=== PATIENT | male | born 1950 | race Caucasian/White ===

== ENCOUNTER 2022-02-17 16:04 | Inpatient (IN) ==
[2022-02-17] MEDS ORDERED: SODIUM CHLORIDE 0.9% 1,000 ML IV STA (16:49)
[2022-02-17] MEDS ORDERED: KETOROLAC 30 MG/1 ML VIAL IV STA (16:51)
[2022-02-17] MEDS ORDERED: KETOROLAC 30 MG/1 ML VIAL ONE (16:53)
[2022-02-17 17:03] LABS: Basophils % 0.5 % (0.0-0.8); Eosinophils # 0.2 10*3/uL (0.0-0.87); Eosinophils % 3.6 % (0.00-10.9); Hematocrit 44.5 VOL% (42.0-52.0); Hemoglobin 15.8 GM/DL (14.0-18.0); Immature Granulocytes % 0.9 %; Immature Granulocytes Absolute 0.05 #; Lymphocytes # 0.3 10*3/uL (1.4-4.0); Lymphocytes % 5.2 % (21.2-54.2); Mean Corpuscular HGB Conc 35.5 GM/DL (32-36); Mean Corpuscular Volume 92.3 FL (87-102); Mean Platelet Volume 9.6 FL (9.6-12.0); Monocytes # 0.3 10*3/uL (0.11-0.8); Monocytes % 5.1 % (1.7-12.7); Neutrophils % 84.7 % (38.7-73.9); Platelet Count 142 T/CUMM (130-400); Red Blood Count 4.82 MC/CUMM (3.8-5.5); Red Cell Distribution Width 11.7 % (9.3-17.3); White Blood Count 5.5 T/CUMM (4-12)
[2022-02-17 17:26] LABS: Albumin 3.2 G/DL (3.4-5.0); Bilirubin,Total 1.7 MG/DL (0.20-1.00); Calcium 9.1 MG/DL (8.5-10.1); Osmolality,Calculated 249.6 MOS/KG (273-304); Potassium 3.2 MMOL/L (3.5-5.1)
[2022-02-17 17:32] LABS: Polychromasia Slight
[2022-02-17 17:33] LABS: Platelet Estimate Normal
[2022-02-17] MEDS ORDERED: ACETAMINOPHEN 325 MG TABLET PO PRN (18:29)
[2022-02-17] MEDS ORDERED: ONDANSETRON 4 MG/2 ML VIAL IV PRN (18:29)
[2022-02-17] MEDS ORDERED: LORazepam 2 MG/1 ML VIAL IV PRN (18:48)
[2022-02-17 18:49] LABS: Hepatitis B Core IgM Quant 0.15 Index; Hepatitis B Surface Ag Quant < 0.10 Index; Hepatitis B Surface Ag Result Non-Reactive (NonReactive); Hepatitis C Virus Ab Quant 0.02 Index; Hepatitis C Virus Ab Result Non-Reactive (NonReactive)
[2022-02-17] MEDS ORDERED: hydrALAZINE 20 MG/1 ML VIAL IV PRN (18:56)
[2022-02-17 20:02] LABS: Calcium 8.2 MG/DL (8.5-10.1); Osmolality,Calculated 259.1 MOS/KG (273-304); Potassium 3.3 MMOL/L (3.5-5.1)
[2022-02-17] MEDS: ENOXAPARIN 40 MG/0.4 ML SYRINGE SUBCUT SCH (21:02)
[2022-02-17] MEDS: POTASSIUM CHLORIDE INJ 20 MEQ in LACTATED RINGERS 1,000 ML IV SCH (21:04)
[2022-02-18 02:15] LABS: Mucus,Urine Moderate /LPF (Occasional); RBC,Urine 4 /HPF (0-4); Squamous Epithelial Cell,Urine Occasional /HPF (0-10)
[2022-02-18 02:17] LABS: Urine Color Dark Yellow (Yellow)
[2022-02-18 02:18] LABS: Bilirubin,Urine Small mg/dL (Negative); Blood, Urine Negative (Negative); Glucose,Urine (UA) Negative (Negative); Ketones,Urine TR mg/dL (Negative); Nitrite,Urine Negative (Negative); Protein,Urine Negative (Negative); Urine Appearance Clear (Clear)
[2022-02-18 06:21] LABS: Basophils % 0.7 % (0.0-0.8); Eosinophils # 0.1 10*3/uL (0.0-0.87); Eosinophils % 3.1 % (0.00-10.9); Hematocrit 42.7 VOL% (42.0-52.0); Hemoglobin 15.2 GM/DL (14.0-18.0); Immature Granulocytes % 0.7 %; Immature Granulocytes Absolute 0.03 #; Lymphocytes # 0.6 10*3/uL (1.4-4.0); Lymphocytes % 13.1 % (21.2-54.2); Mean Corpuscular HGB Conc 35.6 GM/DL (32-36); Mean Corpuscular Volume 92.8 FL (87-102); Mean Platelet Volume 10.2 FL (9.6-12.0); Monocytes # 0.4 10*3/uL (0.11-0.8); Neutrophils % 73.4 % (38.7-73.9); Platelet Count 132 T/CUMM (130-400); Red Cell Distribution Width 11.8 % (9.3-17.3); White Blood Count 4.6 T/CUMM (4-12)
[2022-02-18 06:35] LABS: Calcium 8.6 MG/DL (8.5-10.1); Osmolality,Calculated 253.4 MOS/KG (273-304); Potassium 3.3 MMOL/L (3.5-5.1)
[2022-02-18 06:45] LABS: Band Neutrophils 8 % (0-10); Eosinophils 6 % (0-10); Lymphocytes 10 % (20-55); Total Cells Counted 100
[2022-02-18 06:46] LABS: Microcytosis Slight; Platelet Estimate Adequate
[2022-02-18] MEDS ORDERED: POTASSIUM CHLORIDE 20 MEQ TABLET PO ONE (07:21)
[2022-02-18 07:25] LABS: Albumin 2.9 G/DL (3.4-5.0); Bilirubin,Direct 0.82 MG/DL (0.0-0.20); Bilirubin,Indirect 0.6 MG/DL (0.0-1.0); Bilirubin,Total 1.4 MG/DL (0.20-1.00); Total Protein 6.5 G/DL (6.4-8.2)
[2022-02-18] MEDS ORDERED: FOLIC ACID INJ 1 MG in SYRINGE 1 EACH IV SCH (09:00)
[2022-02-18] MEDS: lisinopriL 20 MG TABLET PO SCH (10:55)
[2022-02-18 10:56] LABS: Calcium 8.3 MG/DL (8.5-10.1); Osmolality,Calculated 252.6 MOS/KG (273-304); Potassium 3.5 MMOL/L (3.5-5.1)
[2022-02-18] MEDS: PANTOPRAZOLE 40 MG TABLET PO SCH (10:56)
[2022-02-18] MEDS: allopurinoL 100 MG TABLET PO SCH (10:56)
[2022-02-18] MEDS: amLODIPine 10 MG TABLET PO SCH (10:56)
[2022-02-18] MEDS: THIAMINE 200 MG/2 ML VIAL IV SCH (10:56)
[2022-02-18] MEDS: FOLIC ACID 1 MG TABLET PO SCH (11:00)
[2022-02-18] MEDS: POTASSIUM CHLORIDE INJ 20 MEQ in LACTATED RINGERS 1,000 ML IV SCH (11:41)
[2022-02-18] MEDS: SODIUM CHLORIDE 0.9% 1,000 ML IV SCH ×2 (12:00→21:51)
[2022-02-18 18:13] LABS: Calcium 8.3 MG/DL (8.5-10.1); Osmolality,Calculated 253.5 MOS/KG (273-304); Potassium 3.4 MMOL/L (3.5-5.1)
[2022-02-18] MEDS: ENOXAPARIN 40 MG/0.4 ML SYRINGE SUBCUT SCH (21:53)
[2022-02-18 23:52] LABS: Calcium 8.6 MG/DL (8.5-10.1); Osmolality,Calculated 252.5 MOS/KG (273-304); Potassium 3.6 MMOL/L (3.5-5.1)
[2022-02-19] MEDS: SODIUM CHLORIDE 0.9% 1,000 ML IV SCH ×2 (00:30→10:21)
[2022-02-19 05:29] LABS: Basophils % 0.5 % (0.0-0.8); Eosinophils % 0.2 % (0.00-10.9); Hemoglobin 14.1 GM/DL (14.0-18.0); Immature Granulocytes % 0.7 %; Immature Granulocytes Absolute 0.06 #; Lymphocytes # 0.8 10*3/uL (1.4-4.0); Lymphocytes % 9.7 % (21.2-54.2); Mean Corpuscular HGB Conc 35.3 GM/DL (32-36); Mean Corpuscular Volume 92.2 FL (87-102); Mean Platelet Volume 10.1 FL (9.6-12.0); Monocytes % 11.2 % (1.7-12.7); Neutrophils % 77.7 % (38.7-73.9); Platelet Count 137 T/CUMM (130-400); Red Blood Count 4.34 MC/CUMM (3.8-5.5); Red Cell Distribution Width 11.9 % (9.3-17.3); White Blood Count 8.6 T/CUMM (4-12)
[2022-02-19 05:52] LABS: Albumin 2.7 G/DL (3.4-5.0); Bilirubin,Total 1.9 MG/DL (0.20-1.00); Calcium 8.4 MG/DL (8.5-10.1); Osmolality,Calculated 252.6 MOS/KG (273-304); Potassium 3.2 MMOL/L (3.5-5.1); Total Protein 6.2 G/DL (6.4-8.2)
[2022-02-19] MEDS ORDERED: POTASSIUM CHLORIDE 20 MEQ TABLET PO ONE (08:20)
[2022-02-19] MEDS: PANTOPRAZOLE 40 MG TABLET PO SCH (10:16)
[2022-02-19] MEDS: lisinopriL 20 MG TABLET PO SCH (10:16)
[2022-02-19] MEDS: allopurinoL 100 MG TABLET PO SCH (10:17)
[2022-02-19] MEDS: amLODIPine 10 MG TABLET PO SCH (10:17)
[2022-02-19] MEDS: FOLIC ACID 1 MG TABLET PO SCH (10:17)
[2022-02-19] MEDS: THIAMINE 200 MG/2 ML VIAL IV SCH (10:18)
[2022-02-19 10:49] LABS: Ferritin 613.9 ng/mL (26-388)
[2022-02-19 13:16] LABS: Calcium 8.7 MG/DL (8.5-10.1); Osmolality,Calculated 256.2 MOS/KG (273-304); Potassium 3.4 MMOL/L (3.5-5.1)
[2022-02-19 20:14] LABS: Calcium 8.3 MG/DL (8.5-10.1); Osmolality,Calculated 257.2 MOS/KG (273-304); Potassium 3.7 MMOL/L (3.5-5.1)
[2022-02-19] MEDS: ENOXAPARIN 40 MG/0.4 ML SYRINGE SUBCUT SCH (21:55)
[2022-02-20 04:31] LABS: Basophils % 0.4 % (0.0-0.8); Eosinophils # 0.3 10*3/uL (0.0-0.87); Eosinophils % 3.1 % (0.00-10.9); Hematocrit 40.3 VOL% (42.0-52.0); Immature Granulocytes % 0.4 %; Immature Granulocytes Absolute 0.04 #; Lymphocytes # 0.7 10*3/uL (1.4-4.0); Lymphocytes % 7.5 % (21.2-54.2); Mean Corpuscular HGB Conc 34.7 GM/DL (32-36); Mean Corpuscular Volume 92.6 FL (87-102); Mean Platelet Volume 9.8 FL (9.6-12.0); Monocytes # 0.6 10*3/uL (0.11-0.8); Neutrophils % 81.6 % (38.7-73.9); Platelet Count 154 T/CUMM (130-400); Red Blood Count 4.35 MC/CUMM (3.8-5.5); Red Cell Distribution Width 12.1 % (9.3-17.3); White Blood Count 8.9 T/CUMM (4-12)
[2022-02-20 04:48] LABS: Calcium 8.5 MG/DL (8.5-10.1); Osmolality,Calculated 260.9 MOS/KG (273-304); Potassium 3.4 MMOL/L (3.5-5.1)
[2022-02-20 04:50] LABS: Albumin 2.7 G/DL (3.4-5.0); Bilirubin,Total 1.9 MG/DL (0.20-1.00); Calcium 8.3 MG/DL (8.5-10.1); Osmolality,Calculated 263.7 MOS/KG (273-304); Potassium 3.5 MMOL/L (3.5-5.1); Total Protein 6.4 G/DL (6.4-8.2)
[2022-02-20] MEDS ORDERED: AZITHROMYCIN INJ 500 MG in SODIUM CHLORIDE 0.9% 250 ML IV SCH (09:00)
[2022-02-20] MEDS ORDERED: cefTRIAXone 1,000 MG in SODIUM CHLORIDE 0.9% 100 ML IV SCH (09:00)
[2022-02-20] MEDS: PANTOPRAZOLE 40 MG TABLET PO SCH (09:48)
[2022-02-20] MEDS: lisinopriL 20 MG TABLET PO SCH (09:48)
[2022-02-20] MEDS: FOLIC ACID 1 MG TABLET PO SCH (09:48)
[2022-02-20] MEDS: amLODIPine 10 MG TABLET PO SCH (09:48)
[2022-02-20] MEDS: allopurinoL 100 MG TABLET PO SCH (09:48)
[2022-02-20] MEDS: THIAMINE 200 MG/2 ML VIAL IV SCH (12:12)
[2022-02-20 13:10] VITALS: BP 154/71
== END 2022-02-20 13:39 | disposition home or self-care (01) | DRG 640 ==
LOC: N.ED 16:04 → N.EDINP 16:04 → N.5E 20:16 → N.EDINP 20:27 → SUATTDRO 02-19 07:18
PROVIDERS: ADMIT Internal Medicine; ATTEND Internal Medicine